=== PATIENT | male | born 1990 | race Caucasian/White ===

== ENCOUNTER 2018-12-19 12:07 | Outpatient (REF) | payer MEDICAID, SELFPAY ==
[2018-12-20 14:54] LABS: Chlamydia Result Negative; GC Result Negative; Specimen Description URINE
== END 2018-12-19 12:27 ==
LOC: NCHCN 12:07
PROVIDERS: PCP Specialist/Technologist Athletic Trainer; Visit Provider Specialist/Technologist Athletic Trainer
DX: F41.0 Panic disorder [episodic paroxysmal anxiety] (principal); F41.9 Anxiety disorder, unspecified; Z11.3 Encounter for screening for infections with a predominantly sexual mode of transmission
CPT/HCPCS: 87491; 87591